=== PATIENT | male | born 1955 | race Caucasian/White ===

== ENCOUNTER 2020-11-20 18:51 | Emergency (ER) | payer OTHER ==
[~2020-11-20] VITALS: Ht 190.5 cm; Wt 100.7 kg
--- NOTE | 2020-11-20 19:39 | PHYS DOC ---
Adult General Chief Complaint Chief Complaint: FLANK PAIN HPI HPI Patient is a 65-year-old male with a past medical history significant for left- sided kidney stones who presents with left-sided flank pain intermittently over the last week, 8 out of 10, sharp in nature at its worse, with associated nausea no vomiting and thinks he had some blood in his urine. States this feels similar to previous stones that he has had. Denies any recent traumas, travels, illnesses, fevers, chest pain, shortness of breath, dysuria, blood in the stool or diarrhea. Denies any known ill contacts. Review of Systems Review of Systems Review of systems otherwise unremarkable except noted in HPI Current Medications Current Medications Current Medications Medications (Trade) Dose Ordered Sig/Topher Start Time Stop Time Status Last Admin Dose Admin Fentanyl Citrate (Fentanyl 2ml Vial) 50 mcg 1X ONCE 11/20/20 19:45 11/20/20 19:46 UNV Ondansetron HCl (Zofran) 4 mg 1X ONCE 11/20/20 19:45 11/20/20 19:46 UNV Physical Exam Physical Exam Constitutional: Well developed, well nourished, no acute distress, non-toxic appearance. [] HENT: Normocephalic, atraumatic, oropharynx moist, no oral exudates, nose normal. [] Eyes: conjunctiva normal, no discharge. [] Cardiovascular:Heart rate regular rhythm, no murmur [] Lungs & Thorax: Bilateral breath sounds clear to auscultation [] Abdomen: soft, no tenderness, no masses, no pulsatile masses. [] Skin: Warm, dry, no erythema, no rash. [] Back: Left CVA tenderness. [] Extremities: No tenderness, ROM intact, no edema. [] Neurologic: Alert and oriented X 3, no focal deficits noted. [] Psychologic: Affect normal, judgement normal, mood normal. [] EKG EKG [] Radiology/Procedures Radiology/Procedures [] Heart Score C/O Chest Pain: No Risk Factors: Risk Factors: DM, Current or recent (<one month) smoker, HTN, HLP, family history of CAD, obesity. Risk Scores: Risk Factors: DM, Current or recent (<one month) smoker, HTN, HLP, family history of CAD, obesity. Course & Med Decision Making Course & Med Decision Making Patient is a 65-year-old male who presents with left-sided flank pain and hematuria Vital signs notable for hypertension. Physical exam noted above. Patient given fentanyl for pain and Zofran for nausea. CT notable for distal 8 mm stone with moderate left-sided hydronephrosis. Laboratory analysis not concerning. Discussed all findings with family who felt they would like to try expectant waiting since its about the formal bladder. Advised on pain and nausea management at home as well as expectant management. Gave strict return precautions to the ED. Also advised to call primary care in the morning to update on ED visit and diagnosis. Patient grateful, verbalized understanding and agreed with plan of discharge. [] Dragon Disclaimer Dragon Disclaimer This electronic medical record was generated, in whole or in part, using a voice recognition dictation system. Departure Departure: Impression: Primary Impression: Ureterolithiasis Disposition: HOME / SELF CARE / HOMELESS Condition: GOOD Referrals: JUDY BARBA MD (PCP) Patient Instructions: Diet for Kidney Stones, Kidney Stones Additional Instructions: Thank you for coming into the emergency department tonight and allowing us to take care of you. Please read all the attached information very carefully to go back over the things we discussed. As discussed, please stay hydrated, take your nausea, and pain medicine as well as your Flomax as prescribed to control symptoms at home and allow you to drink fluids and eat. As discussed you have an 8 mm stone in your ureter about to drop into your bladder. After discussing this you felt you would like to try expectant management as it is about to drop into your bladder. Please call your primary care physician in the morning to update on your ED visit. Please come back to the emergency department immediately with new or concerning symptoms as discussed. Scripts Tamsulosin Hcl (FLOMAX) 0.4 Mg Cap.er.24h 1 CAP PO DAILY for kidney stone for 14 Days, #14 CAP 11 Refills Prov: BRITT TUBBS MD 11/20/20 Ondansetron Hcl (ZOFRAN) 4 Mg Tablet 1 TAB PO PRN Q6HRS PRN for NAUSEA for 7 Days, #20 TAB Prov: BRITT TUBBS MD 11/20/20 Hydrocodone/Acetaminophen (Hydrocodone-Acetamin 5-325 mg) 1 Each Tablet 1 EACH PO Q6HRS for kidney stone for 7 Days, #28 TAB Prov: BRITT TUBBS MD 11/20/20 BRITT TUBBS MD Nov 20, 2020 19:39
[2020-11-20] MEDS ORDERED: ONDANSETRON PF 4 MG/2 ML VIAL. IVP ONE ×2 (19:45→22:00)
[2020-11-20] MEDS ORDERED: losartan (19:49)
[2020-11-20] MEDS ORDERED: rosuvastatin (19:49)
--- NOTE | 2020-11-20 20:12 | RAD ---
Exam: CT of abdomen and pelvis without contrast INDICATION: Flank pain, left-sided pain and urinary kidney TECHNIQUE: Sequential axial images through the abdomen and pelvis obtained without IV contrast. Sagit nadia and coronal reformatted images were reconstructed from the axial data and reviewed. Exposure: One or more of the following in the visualized dose reduction techniques were utilized for this examination: 1. Automated exposure control 2. Adjustment of the MA and/or KV according to patient size 3. Use of iterative of reconstructive technique Comparisons: None FINDINGS: Heart size is normal. No pericardial effusion. Visualized lung bases are clear. No pleural effusion. Evaluation of solid organs limited secondary to noncontrast technique. Liver, spleen, pancreas and adrenals are unremarkable. Gallbladder is decompressed not well evaluated . There is moderate left-sided hydronephrosis and hydroureter. There is a 8 mm calculus at the distal l eft ureter. Several nonobstructing renal calculi are noted. Bladder is decompressed not well evaluated. Prostate is not enlarged. Extensive diverticulosis is noted in the sigmoid colon without evidence of acute diverticulitis. Appe ndix is normal. No free intra-abdominal air or fluid. No obstruction. Abdominal aorta has a normal course and caliber. No enlarged intra-abdominal lymph nodes are identified. No suspicious osseous lesions or acute fractures. IMPRESSION: 1. And 8 mm calculus the distal left ureter causing moderate left-sided hydronephrosis. 2. Additionally there are several bilateral nonobstructing renal calculi bilaterally. Electronically signed by: Nafisa Maloney MD (11/20/2020 8:10 PM) [facility]
[2020-11-20 20:28] LABS: BASO % 0 % (0-3); EOS % 0 % (0-3); HEMOGLOBIN 15.4 g/dL (13.0-17.5); LYMPH # 0.7 x10^3/uL (1.0-4.8); LYMPH % 8 % (24-48); MEAN CORPUSCULAR HEMOGLOBIN 30 pg (25-35); MEAN CORPUSCULAR HGB CONC 34 g/dL (31-37); MEAN CORPUSCULAR VOLUME 89 fL (79-100); MONO # 0.2 x10^3/uL (0.0-1.1); MONO % 2 % (0-9); NEUT % 89 % (31-73); PLATELET COUNT 189 x10^3/uL (140-400); RED BLOOD COUNT 5.19 x10^6/uL (4.30-5.70); RED CELL DISTRIBUTION WIDTH 13.7 % (11.5-14.5); WHITE BLOOD COUNT 8.9 x10^3/uL (4.0-11.0)
[2020-11-20 20:30] LABS: CALCIUM 9.3 mg/dL (8.5-10.1); CREATININE 1.2 mg/dL (0.7-1.3); GFR 61.1; POTASSIUM 4.1 mmol/L (3.5-5.1)
[2020-11-20 21:34] LABS: BILIRUBIN,URINE NEG (NEG); CLARITY,URINE HAZY; COLOR,URINE YELLOW; GLUCOSE,URINE NEG (NEG); NITRITE,URINE NEG (NEG)
[2020-11-20 21:35] LABS: BACTERIA,URINE 0 /HPF (0-FEW); RBC,URINE 20-40 /HPF (0-2); WBC,URINE 0 /HPF (0-4)
[2020-11-20] MEDS ORDERED: HYDR-2759 PO (21:43)
[2020-11-20] MEDS ORDERED: ONDA4TAB7 PO (21:43)
[2020-11-20] MEDS ORDERED: TAMS0.4C97 PO (21:47)
[2020-11-20] MEDS ORDERED: MORPHINE SULFATE 2 MG/ML DISP.SYRIN. IV ONE (22:00)
[2020-11-20] MEDS ORDERED: TAMSULOSIN 0.4 MG CAP.ER.24H. PO ONE (22:00)
[2020-11-20] MEDS ORDERED: MORPHINE SULFATE 4 MG/ML DISP.SYRIN. IV ONE (22:00)
== END 2020-11-20 22:05 | disposition home or self-care (01) ==
LOC: ER 18:51
DX: N13.2 Hydronephrosis with renal and ureteral calculous obstruction (principal)
CPT/HCPCS: 36415; 74176; 80048; 81001; 85025; 96374; 96375; 96376; 99284; J2270; J2405; J3010

== ENCOUNTER 2020-11-21 04:22 | Emergency (ER) | payer OTHER ==
[~2020-11-21] VITALS: Ht 190.5 cm; Wt 100.0 kg
[~2020-11-21 04:22] MED LIST: HYDR-2759 PO; ONDA4TAB7 PO; TAMS0.4C97 PO; losartan; rosuvastatin
[2020-11-21] MEDS ORDERED: MORPHINE SULFATE 4 MG/ML DISP.SYRIN. IV ONE (05:00)
[2020-11-21] MEDS ORDERED: KETOROLAC 15 MG/ML VIAL. IVP ONE (05:00)
[2020-11-21] MEDS ORDERED: MORPHINE SULFATE 2 MG/ML DISP.SYRIN. IV ONE (05:00)
--- NOTE | 2020-11-21 05:00 | PHYS DOC ---
Adult General Chief Complaint Chief Complaint: FLANK PAIN HPI HPI Patient is a 65-year-old male who presents with ureterolithiasis pain. Patient was in the emergency department a few hours ago and was diagnosed with an 8 mm left-sided ureterolithiasis with moderate hydronephrosis. Patient was treated with pain medicines and was offered pain management here in the ED until he hospitals found with urology that could accept him. Patient stated that he wanted to try a watch and wait. At home seen with the stone was almost to his bladder. States that about 3 hours ago the pain came back, 10 out of 10, sharp in nature with radiation to the groin and he did not think he wanted to wait anymore. Review of Systems Review of Systems Review of systems otherwise unremarkable except noted in HPI Current Medications Current Medications Current Medications Medications (Trade) Dose Ordered Sig/Topher Start Time Stop Time Status Last Admin Dose Admin Ketorolac Tromethamine (Toradol 15mg Vial) 15 mg 1X ONCE 11/21/20 05:00 11/21/20 05:01 Morphine Sulfate (Morphine 2mg Syringe) 2 mg 1X ONCE 11/21/20 05:00 11/21/20 05:01 Morphine Sulfate (Morphine 4mg Syringe) 4 mg 1X ONCE 11/21/20 05:00 11/21/20 05:01 Allergies Allergies Allergies Coded Allergies Type Severity Reaction Last Updated Verified No Known Drug Allergies 11/20/20 No Physical Exam Physical Exam Constitutional: Well developed, well nourished, no acute distress, non-toxic appearance. [] HENT: Normocephalic, atraumatic, Eyes: conjunctiva normal, no discharge. [] Neck: Normal range of motion, no tenderness, supple, no stridor. [] Cardiovascular:Heart rate regular rhythm, no murmur [] Lungs & Thorax: Bilateral breath sounds clear to auscultation [] Abdomen: soft, no tenderness, no masses, no pulsatile masses. [] Skin: Warm, dry, no erythema, no rash. [] Back: Left CVA tenderness. [] Extremities: No tenderness, ROM intact, no edema. [] Neurologic: Alert and oriented X 3, no focal deficits noted. [] Psychologic: Affect normal, judgement normal, mood normal. [] EKG EKG [] Radiology/Procedures Radiology/Procedures [] Heart Score C/O Chest Pain: No Risk Factors: Risk Factors: DM, Current or recent (<one month) smoker, HTN, HLP, family history of CAD, obesity. Risk Scores: Risk Factors: DM, Current or recent (<one month) smoker, HTN, HLP, family history of CAD, obesity. Course & Med Decision Making Course & Med Decision Making Patient is a 65-year-old male who presents to the the emergency department a second time this evening for pain secondary to left-sided 8 mm stone Vital signs notable for sinus tachycardia. Physical exam noted above. Patient given morphine and Toradol for pain control. Discussed with patient that he needs to see a urologist as outpatient expectant management failed and his pain management has failed. [facility] called in hopes of transfer to the urology service, but all hospitals declined transfer. Patient states that he did not want to go to and would prefer to go to [facility]. Patient stated that if we can get his pain under control he would just have his son drive him over to [facility] because that is where he gets his care, would like to go and that is best given his insurance. Discussed with patient, the need to go directly to the emergency department if this is indeed what he would like to do as if he did not his pain can get significantly worse, and lead to significant illness, and possibility disability or if he has infection set in. Patient and family grateful, verbalized understanding and agreed with plan of discharge. [] Dragon Disclaimer Dragon Disclaimer This electronic medical record was generated, in whole or in part, using a voice recognition dictation system. Departure Departure: Disposition: HOME / SELF CARE / HOMELESS Condition: STABLE Referrals: JUDY BARBA MD (PCP) Patient Instructions: Diet for Kidney Stones, Kidney Stones, Robotic Ureterolysis and Pyeloplasty, Care After Additional Instructions: Thank you for coming into the emergency department tonight and allowing us to take care of you. Please read all the attached information very carefully to go back over what we discussed. Per your request, you were discharged from this emergency department to allow you to go to the [facility] emergency department for continued evaluation and treatment of your kidney stone by a urology team. We discussed the risks of this, and and you very politely stated your disc and to have your son take your to [facility]. If you are unable to get into [facility] or you have any other troubles at all please come back to the emergency department immediately and we will try other options and or other hospitals for your admission. BRITT TUBBS MD Nov 21, 2020 05:00
[2020-11-21 05:05] VITALS: BP 162/99
== END 2020-11-21 05:12 | disposition home or self-care (01) ==
LOC: ER 04:22
DX: N20.2 Calculus of kidney with calculus of ureter (principal)
CPT/HCPCS: 96374; 96375; 99284; J1885; J2270